=== PATIENT | female | born 1935 | race Caucasian/White ===

== ENCOUNTER 2020-07-01 10:49 | Outpatient (CLI) | payer MEDICARE | END 2020-07-01 10:50 | disposition home or self-care (01) | LOC: BICMRI 10:49 | PROVIDERS: ATTEND Nurse Practitioner Acute Care | DX: R41.89 Other symptoms and signs involving cognitive functions and awareness (principal); I67.89 Other cerebrovascular disease | CPT/HCPCS: 70553; 78803; 82565; A9552 ==